=== PATIENT | male | born 1970 | race Two or more races ===

== ENCOUNTER 2018-06-29 10:35 | Inpatient (IN) | payer OTHER ==
[~2018-06-29] VITALS: Ht 188 cm; Wt 98.0 kg
--- NOTE | 2018-06-29 10:37 | NUR ---
AAOX3, BIBRA 79 FROM [employer]CHOOL C/O NEAR SYNCOPE NO TRAUMA, PT STATES "ROOM IS SPINNING", NS=[id number]. RR IS EVEN AND UNLABORED WITH NAD NOTED. SKIN IS WARM AND DRY. PLACED ON THE MONITOR. DR MCGUIRE AT BS FOR EVAL.
--- NOTE | 2018-06-29 10:45 | NUR ---
LABS DRAWNED AND SENT TO LAB.
--- NOTE | 2018-06-29 10:50 | NUR ---
SENIOR HYDROGEOLOGIST AT BEDSIDE FOR XRAY.
[2018-06-29 10:54] LABS: BASOPHILS # (AUTO) 0.1 /CMM (0.0-0.2); EOSINOPHILS % (AUTO) 4.5 % (0.0-6.0); HEMATOCRIT 44 % (39-51); HEMOGLOBIN 14.7 g/dL (13.5-17.5); LYMPHOCYTES # (AUTO) 1.5 /CMM (0.8-4.8); MEAN CORPUSCULAR HGB CONC 34 g/dl (31.0-36.0); MEAN CORPUSCULAR VOLUME 88 fL (80-96); MONOCYTES # (AUTO) 0.6 /CMM (0.1-1.30); MONOCYTES % (AUTO) 9.3 % (2.0-12.0); NEUTROPHILS # (AUTO) 3.6 /CMM (1.8-8.9); NEUTROPHILS % (AUTO) 60.2 % (43.0-81.0); PLATELET COUNT (AUTO) 284 /CMM (150-450); RED BLOOD CELL COUNT(AUTO) 4.92 MIL/uL (4.5-6.0)
[2018-06-29] MEDS ORDERED: IV NS 0.9% 1,000 ML BAG IV ONE (11:00)
[2018-06-29 11:09] LABS: ALANINE AMINOTRANSFERASE 38 U/L (12-78); ALBUMIN 4.5 g/dL (3.4-5.0); ALKALINE PHOSPHATASE 72 U/L (46-116); ASPARTATE AMINOTRANSFERASE 30 U/L (15-37); BILIRUBIN,DIRECT 0.2 mg/dL (0.0-0.2); BILIRUBIN,TOTAL 1.2 mg/dL (0.2-1.0); CALCIUM, SERUM 9.6 mg/dL (8.5-10.1); CARBON DIOXIDE 30 mmol/L (21-32); CHLORIDE 100 mmol/L (98-107); CREATININE 1.8 mg/dL (0.6-1.3); GLUCOSE 119 mg/dL (74-106); POTASSIUM 3.4 mmol/L (3.5-5.1); SODIUM SERUM 140 mmol/L (136-145); TOTAL PROTEIN, SERUM 8.6 g/dL (6.4-8.2); UREA NITROGEN, BLOOD 21 mg/dL (7-18)
--- NOTE | 2018-06-29 11:38 | NUR ---
PT IS WHEELED TO CT SCAN VIA [facility].
[2018-06-29] MEDS ORDERED: AMLO10TA4 PO (12:17)
[2018-06-29] MEDS ORDERED: NAPR-1009 PO (12:17)
[2018-06-29] MEDS ORDERED: CYCL5TAB PO (12:17)
[2018-06-29] MEDS ORDERED: TRIA1CAP6 PO (12:17)
--- NOTE | 2018-06-29 12:50 | NUR ---
REPORT GIVEN TO ANDREW BELCHER FOR [facility] TELE 112-2.
[2018-06-29] MEDS ORDERED: POTASSIUM CHLORIDE 20 MEQ TAB.PRT.SR PO ONE (14:00)
[2018-06-29] MEDS ORDERED: Z GUARD REMEDY 2 OZ OINT TP PRN (14:00)
[2018-06-29] MEDS ORDERED: ZOLPIDEM TARTRATE 5 MG TABLET PO PRN (14:00)
[2018-06-29] MEDS ORDERED: HYDROCODONE/APAP 5/325MG 1 EACH TABLET PO PRN (14:00)
[2018-06-29] MEDS ORDERED: ONDANSETRON HCL/PF 4 MG/2 ML VIAL IVP PRN (14:00)
[2018-06-29] MEDS ORDERED: ACETAMINOPHEN 325 MG TABLET PO PRN (14:00)
[2018-06-29] MEDS ORDERED: MAGNESIUM HYDROXIDE 30 ML UDC PO PRN (14:00)
--- NOTE | 2018-06-29 14:30 | NUR ---
TORCH STRAIGHTENER AND HEATER NOTES PT GOT TRANSFERRED FROM THE ER. PT WAS ACCOMPANIED BY THE ER NURSE TO THE TELE FLOOR. PT AWAKE, ALERT AND ORIENTED X3. ABLE TO MAKE NEEDS KNOWN. NO PAIN. NO ACUTE RESPIRATORY OR CARDIAC DISTRESS AT THIS TIME. LUNG SOUNDS CLEAR. BOWEL SOUNDS HEARD IN ALL 4 QUADRANTS. NO EDEMA. PT ON ROOM AIR WITH O2 SAT OF 97%. PT ON NORMAL SINUS RHYTHM. SKIN IS DRY AND INTACT. PT IS NOTED WITH RIGHT AC 18GAUGE. ALL NEEDS ANTICIPATED. KEPT CLEAN AND DRY. CALL LIGHT WITHIN REACHED. BED LOCKED AND IN LOW POSITION. SAFETY MEASURES OBSERVED. WILL CONTINUE PLAN OF CARE.
[2018-06-29 15:00] VITALS: BP 147/77
[2018-06-29] MEDS: IV NS 0.9% 1,000 ML IV PRN (15:43)
[2018-06-29 16:00] VITALS: BP 147/77
[2018-06-29] MEDS ORDERED: NAPROXEN 500 MG TABLET PO SCH (17:00)
[2018-06-29] MEDS ORDERED: CYCLOBENZAPRINE 10 MG TABLET PO PRN (17:30)
[2018-06-29] MEDS ORDERED: NAPROXEN 500 MG TABLET PO PRN (17:30)
--- NOTE | 2018-06-29 18:59 | NUR ---
TEST FACILITY ENGINEER CLOSING NOTES PATIENT IN BED A/A/O X3. ABLE TO MAKE NEEDS KNOWN. NO PAIN. NO ACUTE RESPIRATORY OR CARDIAC DISTRESS AT THIS TIME. FAMILY MEMBERS AT BEDSIDE. PT ON NORMAL SINUS RHYTHM. SKIN IS DRY AND INTACT. IV ACCESS ON RIGHT AC 18GAUGE PATENT AND FLUSHING WELL. PATIENT CONTINUES ON IV FLUIDS. ALL NEEDS ANTICIPATED. KEPT CLEAN AND DRY. CALL LIGHT WITHIN REACHED. BED LOCKED AND IN LOW POSITION. SAFETY MEASURES OBSERVED. WILL CONTINUE PLAN OF CARE. ENDORSE TO PM NURSE FOR REGINA.
--- NOTE | 2018-06-29 19:30 | NUR ---
RN INITIAL SHIFT NOTES RECEIVED PATIENT IN BED, AWAKE, ALERT AND ORIENTED X4, ABLE TO VERBALIZE NEEDS. PATIENT DENIES ANY PAIN OR DIZZINESS AT THIS TIME. PLAN OF CARE DISCUSSED IN DETAIL, INCLUDING REQUESTING FOR HELP WHEN AMBULATING FOR SAFETY INCASE PATIENT EXPERIENCES ANOTHER SYNCOPAL EPISODE. RIGHT AC PATENT AND INTACT, FLUSHED WITH NS, ONGOING IV FLUIDS ORDERED. WILL CONTINUE TO CLOSELY MONITOR
[2018-06-29 20:00] VITALS: BP_SYST 114; BP_SYST 116; BP_SYST 142; BP_DIAS 78; BP_DIAS 89; BP_DIAS 90
[2018-06-29 20:21] LABS: APPEARANCE,URINE CLEAR (CLEAR); BILIRUBIN,URINE NEGATIVE (NEGATIVE); BLOOD, URINE NEGATIVE Ery/uL (NEGATIVE); COLOR,URINE YELLOW (YELLOW); KETONES,URINE NEGATIVE (NEGATIVE); LEUKOCYTE ESTERASE ,URINE NEGATIVE (NEGATIVE); NITRITE, URINE NEGATIVE (NEGATIVE); PH,URINE 7.5 (5.0-8.0); PROTEIN,URINE NEGATIVE (NEGATIVE); UGLUCOSE NEGATIVE (NEGATIVE); UROBILINOGEN,URINE 0.2 EU/dL (0.2)
[2018-06-29] MEDS ORDERED: CYCLOBENZAPRINE 10 MG TABLET PO SCH (22:00)
[2018-06-30] VITALS: BP 149/94
[2018-06-30] MEDS: IV NS 0.9% 1,000 ML IV PRN ×2 (01:01→12:50)
[2018-06-30 04:00] VITALS: BP 124/87
--- NOTE | 2018-06-30 06:30 | NUR ---
RN CLSOING NOTES PATIENT RESTING COMFORTABLY IN BED, ALL NEEDS MET THROUGHOUT THE SHIFT. WILL ENDORSE THE PATIENT TO THE AM SHIFT NURSE FOR CONTINUITY OF CARE
[2018-06-30 07:21] LABS: BASOPHILS # (AUTO) 0.1 /CMM (0.0-0.2); BASOPHILS % (AUTO) 1.3 % (0.0-2.0); EOSINOPHILS % (AUTO) 6.2 % (0.0-6.0); HEMATOCRIT 38 % (39-51); HEMOGLOBIN 12.8 g/dL (13.5-17.5); LYMPHOCYTES # (AUTO) 1.7 /CMM (0.8-4.8); LYMPHOCYTES % (AUTO) 30.6 % (20.0-44.0); MEAN CORPUSCULAR HGB CONC 34 g/dl (31.0-36.0); MEAN CORPUSCULAR VOLUME 89 fL (80-96); MONOCYTES # (AUTO) 0.5 /CMM (0.1-1.30); MONOCYTES % (AUTO) 9.4 % (2.0-12.0); NEUTROPHILS # (AUTO) 2.8 /CMM (1.8-8.9); NEUTROPHILS % (AUTO) 52.5 % (43.0-81.0); PLATELET COUNT (AUTO) 246 /CMM (150-450); RED BLOOD CELL COUNT(AUTO) 4.28 MIL/uL (4.5-6.0); WHITE BLOOD COUNT (AUTO) 5.4 K/uL (4.3-11.0)
[2018-06-30 07:55] LABS: CALCIUM, SERUM 8.5 mg/dL (8.5-10.1); CREATININE 1.4 mg/dL (0.6-1.3); PHOSPHORUS 3.4 mg/dL (2.5-4.9); POTASSIUM 3.6 mmol/L (3.5-5.1)
[2018-06-30 08:00] VITALS: BP_SYST 114; BP_SYST 133; BP_SYST 139; BP_DIAS 80; BP_DIAS 91; BP_DIAS 93
[2018-06-30] MEDS ORDERED: AMLODIPINE BESYLATE 10 MG TABLET PO SCH ×2 (09:00)
[2018-06-30] MEDS ORDERED: TRIAMTERENE/HYDROCHLOROTHIAZID (37.5/25MG) 1 UDCAP PO SCH ×2 (09:00)
[2018-06-30 12:00] VITALS: BP 133/88
[2018-06-30 15:00] VITALS: BP 128/85
--- NOTE | 2018-06-30 15:15 | NUR ---
RN NOTE PT DISCHARGED HOME IN STABLE CONDITION WITH [facility], VIA OWN TRANSPORTATION, DISCHARGE INSTRUCTIONS PROVIDED TO PT'S , AND PT, TEACHING DONE, PT VERBALIZED UNDERSTANDING, EXIT CARE DONE, IV REMOVED, ID BAND REMOVED, BELONGINGS LIST SIGNED AND PROVIDED TO PT. PAPERS SIGNED AND COPY LEFT IN CHART. NO NEW PRESCRIPTION AT THIS TIME.
== END 2018-06-30 15:16 | disposition home or self-care (01) | DRG 684 ==
LOC: ER 10:35 → TELE1 14:03
PROVIDERS: ADMIT Nurse Practitioner Acute Care; ATTEND Nurse Practitioner Acute Care
DX: N17.0 Acute kidney failure with tubular necrosis (principal); E86.0 Dehydration; E87.6 Hypokalemia; G89.29 Other chronic pain; I10 Essential (primary) hypertension; E86.1 Hypovolemia; Z91.81 History of falling; M47.895 Other spondylosis, thoracolumbar region
CPT/HCPCS: 36415; 70450-TC; 71045-TC; 72128-TC; 72131-TC; 80048-TC; 80061-TC; 80076-TC; 81000-TC; 83735-TC; 84100-TC; 84484-TC; 85025-TC; 87081-TC; 93307-TC; 93880-TC; G0378; J7030